=== PATIENT | female | born 1945 | race Caucasian/White ===

== ENCOUNTER → 2016-07-06 | Outpatient (CLI) | payer OTHER ==
[~2016-07-06] MED LIST: AMLO10TA4 PO; ATEN50TA8 PO; ATOR10TA82 PO; ESCI10TA17 PO; HYDR25TA4 PO; LISI40TA PO; MELO15TA3 PO
--- NOTE | 2016-07-06 11:24 | DIAGNOSTIC IMAGING REPORT ---
EXAMINATION: RENAL ULTRASOUND CLINICAL HISTORY: RECURRENT UTI'S,R82.90,R31.9 COMPARISON STUDY: CT scan dated 12/29/2008 FINDINGS: The right kidney measures 5.5 cm. The left kidney measures 10.1 cm. There is mild dilatation of both collecting systems. There are no renal masses. Neither ureteral jet was visualized. No bladder lesions are evident IMPRESSION : Mild dilatation of both renal collecting systems. No renal masses identified. Electronically signed by: Pierce Sheth M.D. 07/06/2016 11:22 AM Dictated Date/Time: 07/06/2016 11:21 AM
== END | disposition home or self-care (01) ==
LOC: C.ULTR 10:52
DX: N39.0 Urinary tract infection, site not specified (principal); N28.89 Other specified disorders of kidney and ureter

== ENCOUNTER → 2016-07-22 | Outpatient (CLI) | payer OTHER ==
--- NOTE | 2016-07-22 16:33 | MAMMOGRAPHY REPORT ---
BILATERAL DIGITAL SCREENING MAMMOGRAM WITH CAD: 07/22/2016 CLINICAL HISTORY: Routine screening. Patient has no complaints. TECHNIQUE: Current study was also evaluated with a Computer Aided Detection (CAD) system. Bilatera l CC and MLO views were obtained. COMPARISON: Comparison is made to exams dated: 04/15/2014 mammogram, 12/07/2010 mammogram, 08/04/2009 ma mmogram - [facility], and 07/30/2008. BREAST COMPOSITION: There are scattered areas of fibroglandular density in both breasts. FINDINGS: No suspicious masses, calcifications, or areas of architectural distortion are noted in e ither breast. There has been no significant interval change compared to prior exams. IMPRESSION: ACR BI-RADS CATEGORY 1: NEGATIVE There is no mammographic evidence of malignancy. A 1 year screening mammogram is recommended. The p atient will receive written notification of the results. Approximately 10% of breast cancers are not detected with mammography. A negative mammographic repor t should not delay biopsy if a clinically suggestive mass is present. Georgina Suh M.D. ah/:07/22/2016 15:13:10 General Ledger Accountant: Sreedhar Tucker RT(R)(M), [facility] letter sent: Normal 1/2 BI-RADS Code: ACR BI-RADS Category 1: Negative
== END | disposition home or self-care (01) ==
LOC: C.MAMM 13:32
DX: Z12.31 Encounter for screening mammogram for malignant neoplasm of breast (principal)

== ENCOUNTER → 2017-11-20 | Outpatient (CLI) | payer OTHER ==
--- NOTE | 2017-11-21 06:59 | MAMMOGRAPHY REPORT ---
BILATERAL DIGITAL SCREENING MAMMOGRAM TOMOSYNTHESIS WITH CAD: 11/20/2017 CLINICAL HISTORY: Routine screening examination. TECHNIQUE: The study was acquired using full field digital technology and interpreted from soft copy. Breast tomosynthesis in addition to standard 2D mammography was performed. Current study was also ev aluated with a Computer Aided Detection (CAD) system. COMPARISON: Comparison is made to exams dated: 07/22/2016 mammogram, 04/15/2014 mammogram, 12/07/2010 ma mmogram, 08/04/2009 mammogram - [facility], 07/30/2008, and 07/30/2008. BREAST COMPOSITION: There are scattered areas of fibroglandular density in both breasts. FINDINGS: The parenchymal pattern is unchanged. No developing mass, architectural distortion or cluster of susp icious microcalcifications is seen in either breast. IMPRESSION: ACR BI-RADS CATEGORY 2: BENIGN There is no mammographic evidence of malignancy. A 1 year screening mammogram is recommended.( [id number]) The patient will receive written notification of the results. Some breast cancers are not detected with mammography. A negative mammographic report should not carlos y biopsy if a clinically suggestive mass is present. Alessandra Mcclellan M.D. ay/:11/20/2017 15:04:06 Code Enforcement Inspector: RT Kiki(Ciara)(M), [facility] letter sent: Normal 1/2 BI-RADS Code: ACR BI-RADS Category 2: Benign
== END | disposition home or self-care (01) ==
LOC: C.MAMM 11:22
PROVIDERS: ATTEND Physician Assistant
DX: Z12.31 Encounter for screening mammogram for malignant neoplasm of breast (principal)